=== PATIENT | male | born 1950 | race Caucasian/White ===

== ENCOUNTER 2019-05-06 05:33 | Inpatient (IN) ==
[2019-05-06] MEDS ORDERED: Sodium Chloride 0.9% 250 ML ONE (05:57)
[2019-05-06] MEDS ORDERED: Vancomycin Inj 1gm vial ONE ×2 (05:57→07:10)
[2019-05-06] MEDS ORDERED: Vancomycin-PHA to Dose IV PRN (06:00)
[2019-05-06] MEDS ORDERED: Lactated Ringers 1,000 ML PRIMARY IV ONE (06:00)
[2019-05-06] MEDS ORDERED: LIDOCAINE W/ SODIUM BICARB 0.5 ML SYR SUBD ONE (06:00)
[2019-05-06] MEDS ORDERED: ceFAZolin Inj 2gm (Premix) 2 GM/50 ML BAG IV ONE (06:00)
[2019-05-06] MEDS ORDERED: Nasal Sanitizer POPSWAB ampule 3 AMP (Nozin) PREOP DOSE ENOS SCH (06:00)
[2019-05-06 06:21] LABS: BILIRUBIN,URINE NEGATIVE (NEG); CLARITY,URINE CLEAR (CLEAR); COLOR,URINE YELLOW (Y); GLUCOSE, URINE (UA) NEGATIVE (NEG); OCCULT BLOOD,URINE NEGATIVE (NEG); PH,URINE 5.5 (5.0-8.5); PROTEIN,URINE NEGATIVE (NEG); UROBILINOGEN,URINE 0.2 EU/dL (0.2)
[2019-05-06 06:30] LABS: URINE SAMPLE TYPE CLEAN CATCH URINE
[2019-05-06] MEDS ORDERED: Gentamicin Inj 40 MG/ML VIAL ONE (07:10)
[2019-05-06] MEDS ORDERED: BACITRACIN 50,000 UNIT VIAL IRRIG ONE ×2 (07:10→08:30)
[2019-05-06] MEDS ORDERED: Sodium Chloride 0.9% vial 30 ML ONE (07:10)
[2019-05-06] MEDS ORDERED: BUPIVACAINE 0.25% W/ EPI - 10 ML VIAL ONE (07:10)
[2019-05-06] MEDS ORDERED: HYDROmorphone 2 MG/1 ML ONE ×2 (07:33→07:34)
[2019-05-06] MEDS ORDERED: ROCURONIUM 10 MG/1 ML - 5 ML VIAL IVP ONE (07:33)
[2019-05-06] MEDS ORDERED: LIDOCAINE HCL 2 % 10 ML JELLY URO-JECT TOPICAL ONE (07:45)
[2019-05-06] MEDS ORDERED: TRANEXAMIC ACID 1,000 MG / 10 ML VIAL ONE (08:23)
[2019-05-06] MEDS ORDERED: DEXAMETHASONE PF 10 MG/1 ML VIAL ONE (08:23)
[2019-05-06] MEDS ORDERED: Sodium Chloride 0.9% vial 10 ML ONE ×2 (08:30→12:01)
[2019-05-06] MEDS ORDERED: LIDOCAINE HCL 2 % 10 ML JELLY URO-JECT TOPICAL PRN (08:36)
[2019-05-06] MEDS ORDERED: ceFAZolin 1 GM VIAL ONE (11:28)
[2019-05-06] MEDS ORDERED: PROPOFOL 10 MG/1 ML (200 MG/20 ML) VIAL IV ONE (11:37)
[2019-05-06] MEDS ORDERED: BUPivacaine Liposome/PF (Exparel) Inj 20ml vial INFIL ONE (13:45)
[2019-05-06] MEDS ORDERED: Sodium Chloride 0.9% vial 20 ML ONE (13:45)
[2019-05-06] MEDS ORDERED: LIDOCAINE W/ SODIUM BICARB 0.5 ML SYR SUBD PRN (14:42)
[2019-05-06] MEDS ORDERED: HYDROmorphone 2 MG/1 ML IVP PRN (14:42)
[2019-05-06] MEDS ORDERED: Ondansetron ODT Tab 8 MG TAB PO PRN (14:42)
[2019-05-06] MEDS ORDERED: Acetaminophen 1000mg Inj 1,000 MG/100 ML VIAL IV ONE (14:42)
[2019-05-06] MEDS ORDERED: fentaNYL Inj 100 MCG/2 ML VIAL IVP PRN (14:42)
[2019-05-06] MEDS ORDERED: Prochlorperazine Edisylate Inj 10mg/2ml vial IVP PRN ×2 (14:42→16:13)
--- NOTE | 2019-05-06 14:42 | CRNA.PROGR ---
Anesthesia Recovery Phase I - Post Anesthesia Evaluation Patient's Condition on Arrival in Phase I: Stable Patient's Condition on Arrival in Phase II: Stable Pain Level: 2 (stable at pt handoff pacu)
--- NOTE | 2019-05-06 14:42 | CRNA.PROGR ---
Anesthesia Time - Procedure/Recovery Time Start Date: 05/06/19 End Date: 05/06/19 Anesthesia : Time In: :24 Anesthesia : Time Out: 14:39 Anesthesia : Total Time: 435 - Total Anesthesia Time Total Anesthesia Time (minutes): 435 - Other Weight: 100.698 kg Height: 6 ft 3 in Body Mass Index (BMI): 27.7 Physical Status: P2 (Stable at pt handoff pacu, and d/c to floor) Anesthesia Type: General Anesthesia : ET
--- NOTE | 2019-05-06 15:03 | GEN.OPNOTE ---
Operative Note Surgery Date: 05/06/19 Preoperative Diagnosis: 1. Shooting left calf pain with flexion of the left lower leg. 2. Multilevel lumbar degenerative disc disease. 3. Multilevel lumbar spondylosis. 4. Diffuse disc protrusions L2-3. L3-4 and L4-5 and L5-S1 more prominent left producing lateral recess stenosis at L3-4 and L4-5. 5. Left L4 and L5 neural foraminal stenosis. 6. S/P right L3-4 and right L4-5 MLD. Postoperative Diagnosis: 1. Shooting left calf pain with flexion of the left lower leg. 2. Multilevel lumbar degenerative disc disease. 3. Multilevel lumbar spondylosis. 4. Heavily scarred neural elements to surrounding spinal structures, L3-4 and L4-5. 5. Left L4-5 subligamentous herniated nucleus propulsis, partially caudally migrated under left L5 nerve root. 6. Loose rostral aspect of left L5 superior articulating facet process in the lateral recess. 7. L5-S1 central canal stenosis with bilateral lateral recess stenosis. 8. Left L3, L4, L5 neuroforaminal stenosis. 9. S/P right L3-4 and right L4-5 MLD. Procedure: 1.) Partial L3 laminectomy with medial facetectomies and foraminotomies bilaterally. (CPT code: 96259). 2.) Redo L4 laminectomy with medial facetectomies and foraminotomies bilaterally. (CPT code: 34396). 3.) Complete L5 laminectomy with medial facetectomies and foraminotomies bilaterally. (CPT code: 78029). 4.) Use of the operative microscope for microsurgical techniques for the left L4-5 microlumbar discectomy. (CPT code: 51942). 5.) Use of intra-operative fluoroscopy for localization of correct surgical levels and for comfirmation of final levels of decompression. 6.) Use of intra-operative neuromonitoring including EMG's and SSEP's. Surgeon: Curtis Bergman MD Manager Education: JOHANNE Tafoya Anesthesia Provider: Sourav Cowan MD Anesthesia Type: General Estimated Blood Loss (mL): 250 Fluids: See anesthesia record Pathology: None Indications: Mr. Gallagher is a 68 year old gentleman with left calf pain. Ms. Gallagher has a history of a L3-5 laminectomy and right L3-[address] Buckner on 04/20/2016. He did well following this surgery. but that same year he fell and twisted his left leg, and since this accident has had pain in his left knee and calf. He underwent a left knee arthroscopy with a menisectomy in August 2018, which did not relieve his calf pain. He was referred to Dr. Elias who diagnosed with with neuropathy. Mr. Gallagher continues to get sharp pain down his left calf when he attempts to bend his knee. He had a lumbar MRI scan that demonstrated multilevel lumbar degenerative disc disease and multilevel lumbar spondylosis. The study demonstrated left lateral recess stenosis and left neuroforaminal stenosis. He had failed to get relief with non-operative therapies, but did get brief relief of his symptoms with better ability to move his left lower extremity with left L4 and L5 selective nerve root blocks. We discussed the option of redo decompression at L3-4 and L4-5 with a L3-S1 lumbar laminectomy with medial facetectomies and foraminotomies for potential durable relief of his symptoms; however I did state to him the I could not give him any guarantee relief of his unusual symptoms with the procedure. He wished to proceed with the procedure and presents for his surgery today. Findings: 1.) Heavy scarring of the thecal sac and nerve roots to surrounding structures. 2.) Dense calcified plaque of scar on the dorsal aspect of the thecal sac. 3.) Left L4-5 herniated nucleus propulsis. 4.) Loose upper aspect of left superior L5 articulating facet in the lateral recess. 5.) Moderately severe to severe L5-S1 central canal and bilateral lateral recess stenosis. 6.) Left L3, L4, and L5 neuroforaminal stenosis. Complications: Small incidental durotomy with intact underlying arachnoid membrane with no CSF leak, covered with Duragen, sealed over the dura with Tisseal. Operative Summary: Mr. Gallagher was met in the preoperative area. His surgical history and physical in his surgical chart was reviewed. The procedure to be performed was confirmed with Mr. Gallagher and we were in agreement on the procedure to be performed and this matched what was written on his consent form. I answered any questions that he or his had before he was taken back to the operating room suite. Mr. Gallagher was brought back to the operating room suite and put under general anesthesia and intubated by the anesthesia staff. He had a Gray catheter placed in his bladder for the procedure. He had pneumatic compression hose placed on his lower legs bilaterally. Mr. Gallagher was carefully rolled over onto the Gurjit surgical table with his arms gently positioned upwards with her shoulders abducted less than 90. His arms were well-padded with foam padding on top of the padding of the surgical armboards. The region of his chest and axilla was checked bilaterally to make sure that there were no pressure points over the region of the brachial plexus bilaterally. His nipples were checked be below the chest pad of the Gurjit table no pressure points. All bony prominences were well padded. His Gray catheter was checked be free from kinks. His pneumatic compression hose was attached pneumatic compression device. The C-arm fluoroscopy was used to help determine the rostral and caudal extension needed to Mr. Gallagher's scar from his previous inicision for his lumbar laminectomies and discectomies. The intended skin incision was demarcated with a skin marker with crosshatches including Mr. Gallagher scar firmness previous surgery which was somewhat at an angle and not completely midline. It was felt better to open the previous incision with the rostral and caudal extension rather than to make new separate incision in the midline. Mr. Gallagher was given 2 g of Ancef IV and vancomycin (dosed per pharmacy) IV for perioperative antibiosis. He was given 10 mg of Decadron IV. A standard surgical timeout was performed identifying the correct patient, the correct procedure, and the correct equipment being available for the procedure. The intended skin incision was injected subcutaneously with quarter percent Marcaine with 1 in 200,000 epinephrine. 20 mL of local anesthetic was used. The intended skin incision was incised with a 10 blade scalpel with all dermal and superficial bleeding points coagulated with bipolar cautery. Dissection was continued down through the subcutaneous tissue and scar tissue from the patient's previous surgery down to the lumbar fascia. The lumbar fascia was incised along the borders of the spinous process believed to be the L3 spinous process and the dissection was continued laterally out over the L3 lamina. Dissecting further caudally the L4 spinous process was missing, removed at the time of the patient's previous surgery, but the L5 spinous process was identified and subperiosteal dissection was performed down the spinous process and out over the lamina. Lateral fluoroscopy was then performed confirming the levels of exposure. The dissection was continued over the medial aspects of the L3-4, L4-5, and L5-S1 facet joints. The caudal aspect of the L3 spinous process was removed with a large Leksell rongeur. A partial laminectomy of L3 with medial facetectomies and foraminotomies bilaterally was performed using the high-speed Zinc software drill with a matchstick bit as well as with Kerrison punches. The scar tissue from the patient's previous surgery filled the interlaminar space low the L3 lamina but once the partial laminectomy was performed, yellow lig ament was identified, and then up angled curette was used to dissect the insertion of the yellow ligament from underneath the remaining aspect of the L3 lamina. The plane between the yellow ligament and the dura in this rostral aspect of the surgical dissection was established and the yellow ligament was removed in the canal and lateral recesses bilaterally. There was bilateral lateral recess stenosis encountered bank guard in degree and the right. The thickened ligament and bony arthropathy producing this lateral recess stenosis was removed with a high-speed drill with a matchstick bit as well as with Kerrison punches. Proceeding caudally, the scar tissue from the patient's previous surgery was encountered. The left aspect of the L4 lamina remained, left from the previous surgery. The thecal sac was heavily scarred to the remaining L4 lamina and to the lateral bony guerra of the canal. The remaining aspect of the L4 lamina on the left was completely removed with a high-speed drill with a matchstick bit. Medial facetectomies were performed bilaterally, drilling the the medial aspect of the lateral bony guerra just adjacent to the thecal sac and scar tissue connecting the thecal sac to this bone which helped release the tethering of the thecal sac to the bony guerra. Careful dissection with a medium straight and medium up angled curette helped to further detail her the thecal sac from its dense scar tissue attachments to the bony aspects of the canal. Dissecting in the lateral recess, left lateral recess stenosis was encountered at L3-4 and L4-5 from bony arthropathy and ligamentous hypertrophy. During this dissection in the left lateral recess, the rostral aspect of the superior L5 articulating process with found to be loose, which was dissected out with an up angled curette and removed. With this the lateral aspect of the left L4-5 disc space was identified. After carefully detethering of the thecal sac from the disc space, a prominent subligamentous herniated nucleus pulposus extending caudally beneath the transversing L5 nerve root was encountered. The thecal sac was carefully retracted with a sucker tip and an annulotomy was performed in the L4-5 disc space on the left and the subligamentous disc herniation was removed including the caudally migrated disc fragment in a pseudocapsule behind the posterior superior aspect of the L5 vertebral body in the left lateral recess. This completely decompressed the lateral recess and the transversing L5 nerve root. With the thecal sac now essentially completely de-tethered from scar tissue attachments to the bony aspects of the canal, there remained a thick, dense, heavily calcified plaque of scar tissue attached to the dorsal aspect of the dura. This was pared down to a thin layer of scar over the dura with a fine tooth forceps and a 15 blade scalpel. A complete laminectomy of L5 with medial facetectomies was then performed, removing the L5 spinous process with a large Leksell rongeur, and thinning of the L5 lamina bilaterally with the same instrument. The remainder of the laminectomy, medial facetectomies, and foramintomies were performed with the high-speed drill with a matchstick bit as well as with Kerrison punches. When removing the last piece of bone in the right lateral recess, a small tethering of scar remaining to the thecal sac toward small durotomy in the dura, but with the arachnoid layer underneath intact, and no CSF leak. Surgical findings at the L5-S1 level included lumbar central canal stenosis and bilateral lateral recess stenosis, more than expected on preoperative imaging. Excellent decompression of the spinal canal from the level of the L3 pedicle to the level of the S1 pedicle bilaterally was then assured both by visual inspection as well as by palpation with the [place]land instrument in the canal and the lateral recesses and passing the instrument above and below the L3-L4 and L5 nerve roots as they transversed out there neuroforamen and passing the same instrument above and below the S1 nerve roots as they passed medial to the pedicles. The surgical site was pulse lavaged with 3 L of bacitracin/vancomycin/and Meissen solution. Meticulous hemostasis was performed with bipolar cautery and FloSeal hemostatic agent. Surgical site was irrigated with bacitracin irrigation. FloSeal hemostatic agent was placed into the lateral recesses of the d ecompressed levels bilaterally. A piece of 1 cm x 3 cm DuraGen was then placed over the durotomy site which was then sealed over with Tisseel tissue sealant. Once the Tisseel set up a piece of compressed Gelfoam was placed across the exposed canal. FloSeal hemostatic agent was then placed around the edges of the Gelfoam and also the Gelfoam was covered with the FloSeal hemostatic agent. A surgical site drain was considered however excellent hemostasis had been obtained, the surgical site was quite dry, it was felt best not to place a drain with the durotomy even though there was no CSF leak. It was felt not to be necessary. The closure portion of the procedure was begun. The paraspinous musculature was closed with #1 Vicryl suture in an interrupted fashion. The lumbar fascia was closed tightly with #1 Vicryl suture in an interrupted fashion. The surgical site was then pulse lavaged with a small amount of the remaining irrigant. The deep subcutaneous tissue was then reapproximated with 2-0 Vicryl suture in an interrupted fashion. 20 mL of Experel mixed with 20 mL of quarter percent Marcaine was then injected all around the incision in the subcutaneous tissue layer. The dermis and superficial subcutaneous tissue was then reapproximated with 3-0 Vicryl suture in an inverted interrupted fashion. The Ioban drape was pulled back from the skin edges and the final layer of closure was performed surgical stainless steel jennifer. The incision was cleansed with bacitracin soaked sponge and dried with a sterile dry sponge. The incision was dressed with a Silverlon dressing. All surgical drapes removed from Mr. Gallagher. He was carefully rolled over onto the PACU stretcher. He was awoken and a the anesthesia staff. He was taken to the recovery room in stable condition. All surgical counts were reported as correct by the scrub and circulating personnel. A physician's licensed occupational therapy assistant, Mrs. Ana Hernandez PA-C, assisted with the procedure including the exposure and closure portions of the procedure. She also provided irrigation and suctioning throughout the procedure.
[2019-05-06] MEDS ORDERED: oxyCODONE/APAP 7.5/325 Tab 1 TAB TAB PO PRN (16:13)
[2019-05-06] MEDS ORDERED: MORPHINE SULFATE 2 MG/1 ML IVP PRN (16:13)
[2019-05-06] MEDS ORDERED: DIAZEPAM 10 MG TABLET PO PRN (16:13)
[2019-05-06] MEDS ORDERED: PROMETHAZINE 25 MG/1 ML VIAL IM PRN (16:13)
[2019-05-06] MEDS ORDERED: DIAZEPAM 10 MG/2 ML (5 MG/1 ML) CARPUJECT IVP PRN (16:13)
[2019-05-06] MEDS ORDERED: oxyCODONE/APAP 10/325 Tab 1 EACH TAB PO PRN (16:13)
[2019-05-06] MEDS ORDERED: Fleet Enema 133ml RECTAL PRN (16:13)
[2019-05-06] MEDS ORDERED: BISACODYL 5 MG TABLET PO PRN (16:13)
[2019-05-06] MEDS ORDERED: oxyCODONE-ACETAMINOPHEN 5-325 TAB PO PRN (16:13)
[2019-05-06] MEDS ORDERED: MAGNESIUM 400 MG/5 ML - 30 ML (MILK OF MAGNESIA) PO PRN (16:13)
[2019-05-06] MEDS ORDERED: Metoclopramide Inj 10 MG/2 ML VIAL IVP PRN (16:13)
[2019-05-06] MEDS ORDERED: MAGNESIUM CITRATE 296 ML SOLUTION PO PRN (16:13)
[2019-05-06] MEDS ORDERED: DOCUSATE 100 MG CAPSULE PO PRN (16:13)
[2019-05-06] MEDS ORDERED: HYDROcodone-APAP 10 MG-325 MG TABLET PO PRN (16:13)
[2019-05-06] MEDS ORDERED: Vancomycin-PHA to Dose IV SCH (16:13)
[2019-05-06] MEDS ORDERED: Ondansetron ODT Tab 4 MG TAB PO PRN (16:13)
[2019-05-06] MEDS ORDERED: ONDANSETRON 4 MG/2 ML VIAL IVP PRN (16:13)
--- NOTE | 2019-05-06 16:45 | NEURO.PROG ---
Subjective Post Op Day: 0 Pain Management: PO Gray Catheter: Yes Diet: Regular Ambulating: No Additional Details: Awake and alert in the PACU. Reports minor incisional pain. States left lower leg seems to feel better. Good knee flexion, dorsiflexion, plantarflexion bilaterally. To med/surg floor when parameters met. Continue bedrest with HOB up to 20 degrees until Saturday to let small durotomy start to heal. Continue post-operative antibiotics. Continue post-operative pain control. Advance diet. LE Dopplers Saturday. Start to get up, OOB, and mobilize Saturday. Objective : Data - Vital Signs Vital Signs and I&O: Vital Signs - Last Taken Temperature 97.5 F 05/06/19 16:21 Pulse Rate 70 05/06/19 16:21 Respiratory Rate 14 05/06/19 16:21 Blood Pressure 128/87 05/06/19 16:21 Pulse Ox 95 05/06/19 16:21 Intake and Output (24hr x 4 totals) 05/04/19 05/05/19 05/06/19 05/07/19 05:59 05:59 05:59 05:59 Intake Total 2600 / 2600 Output Total 800 / 800 Balance 1800 / 1800
[2019-05-06] MEDS: ceFAZolin Inj 1 GM in Sodium Chloride 0.9% 100 ML IV SCH (17:18)
--- NOTE | 2019-05-06 19:17 | CONSULT ---
Consult Note - Consult Consult Date: 05/06/19 Reason for Consult: PostOp Consulation : Neuro Requesting Physician: Dr. Bergman Primary Care Provider: NONE NONE - History of Present Illness History of Present Illness: This is a 68 years old male with medical history significant for history of hyperlipidemia, multilevel lumbar degenerative disc disease who came into the hospital to have L3 S1 lumbar laminectomy and was done by Dr. Bergman today the patient was seen postoperatively. Patient is in bedrest until Saturday because of dural tear. He was having some pain in his back from surgery but otherwise he is denying other symptoms. He said his main complaint prior to that was the shooting pain in the left leg after he bends his left knee. Currently he is denying other symptoms like nausea, chest pain, shortness of breath. Past Medical History Medical History: 1. History of hyperlipidemia Surgical History: 1. History of L5 discectomy in 2015. 2. Left knee surgery August 2018 Family History: Reviewed an Not Pertinent Past Social History: Does not smoke, occasionally drink on no drugs. Tobacco Use: Never Smoker In the Past 12 Months, Have Used or Abuse Any of the Following Substance: None Review of Systems - Review of Systems All Systems: Reviewed & No Additional Complaints Except as Stated Medication / Allergies Home Medications: Home Medications Medication Instructions Recorded Confirmed rosuvastatin 20 mg tablet 20 mg PO QDAY 12/29/18 05/06/19 Allergies/Adverse Reactions: Allergies Allergy/AdvReac Type Severity Reaction Status Date / Time No Known Allergies Allergy Verified 05/07/19 06:48 Exam - Vitals Vital Signs: Vital Signs Temperature 97.7 F Temperature Source Oral Pulse Rate [Pulse Oximeter] 68 Pulse Rate 68 Respiratory Rate 16 Blood Pressure [Right Arm] 158/60 Blood Pressure 134/75 Pulse Ox 96 Oxygen Flow Rate 1.5 Oxygen Delivery Method Nasal Cannula Height 6 ft 3 in Weight 222 lb - General General Appearance: No Acute Distress, Cooperative - Head Head Exam: Normal Inspection - Eye Eye Exam: POSITIVE: Normal Appearance - ENT ENT Exam: POSITIVE: Normal Exam - Neck Neck Exam: Normal Inspection - Respiratory Respiratory Exam: POSITIVE: Clear to Auscultation - Bilaterally - Cardiovascular Cardiovascular Exam: POSITIVE: RRR - GI/Abdominal GI/Abdominal Exam: POSITIVE: Normal Bowel Sounds, Non Tender, Non Distended, Soft - Rectal Rectal Exam: POSITIVE: Deferred - External Exam: POSITIVE: Deferred - Extremities Extremities Exam: POSITIVE: Normal Inspection - Neurological Neurological Exam: POSITIVE: Alert, Oriented x 3, CN II-XII Intact, No Facial Droop, Speech Intact / Clear Results - Labs CBC and BMP: 05/07/19 04:20 05/07/19 04:20 Assessment and Plan - Patient Problems (1) Status post laminectomy Current Visit: No Status: Acute Comment: Management per Dr. Bergman. He already wrote for pain medications and anti-emetics. For DVT prophylaxis he is on SCDs. Code(s): Z98.890 - Other specified postprocedural states (2) High cholesterol Current Visit: No Status: Chronic Comment: Continue previous medication Code(s): E78.00 - Pure hypercholesterolemia, unspecified
[2019-05-06] MEDS: Rosuvastatin Tab 20 MG TAB PO SCH (20:30)
[2019-05-06] MEDS ORDERED: VANCOMYCIN HCL IV ONE (21:00)
[2019-05-06] MEDS ORDERED: SODIUM CHLORIDE 0.9% IV ONE (21:00)
[2019-05-07] MEDS: ceFAZolin Inj 1 GM in Sodium Chloride 0.9% 100 ML IV SCH (00:54)
[2019-05-07] MEDS: HYDROcodone-APAP 5 MG -325 MG TABLET PO PRN ×3 (04:18→23:49)
[2019-05-07 05:23] LABS: BASOPHILS # (AUTO) 0 10*3/UL; BASOPHILS % (AUTO) 0 % (0-1); EOSINOPHILS # (AUTO) 0 10*3/UL; EOSINOPHILS % (AUTO) 0 % (0-8); Hematocrit [HCT] 42.1 % (42.0-52.0); LYMPHOCYTES # (AUTO) 0.82 10*3/uL; MEAN CORPUSCULAR HGB CONC 33.3 g/dL (33-37); MEAN CORPUSCULAR VOLUME 92.7 FL (80-90); MEAN PLATELET VOLUME 12.2 FL (7.4-12.2); MONOCYTES # (AUTO) 1.19 10*3/UL (0.3-0.8); MONOCYTES % (AUTO) 7.6 % (5-15); NEUTROPHILS # (AUTO) 13.56 10*3/UL; NEUTROPHILS % (AUTO) 86.9 % (50-80); RED BLOOD COUNT 4.54 10^6/uL (4.70-6.10)
[2019-05-07 05:31] LABS: PLATELET MORPHOLOGY COMMENT NORMAL MORPHOLOGY (NORM); RBC MORPHOLOGY COMMENT NORMAL MORPHOLOGY (NORM); WBC MORPHOLOGY COMMENT NORMAL MORPHOLOGY (NORM)
[2019-05-07 05:39] LABS: BLOOD UREA NITROGEN 21 mg/dL (7-22)
[2019-05-07] MEDS: PANTOPRAZOLE 40 MG TABLET PO SCH (06:49)
--- NOTE | 2019-05-07 07:19 | NEURO.PROG ---
Subjective Post Op Day: 1 Pain Management: PO Gray Catheter: Yes Flatus: Yes Diet: Regular Ambulating: No Additional Details: Mr Gallagher is awake and alert, moving all extremities. He states that the numbness he has had in his feet is not present and that he is reasonably comfortable at bedrest. He has full dorsi/plantar and knee flexsion. He denies arm or shoulder discomfort from prone positioning in OR. His incision is dry and intact. Vena flows operational on bilateral lower extremities Plan: Continue bedrest today, then LE US in am for venous evaluation prior to ambulation Objective : Data - Labs CBC and BMP: 05/07/19 04:20 05/07/19 04:20 - Vital Signs Vital Signs and I&O: Vital Signs - Last Taken Temperature 97.5 F 05/07/19 06:33 Pulse Rate 67 05/07/19 06:33 Respiratory Rate 17 05/07/19 06:33 Blood Pressure 140/67 05/07/19 06:33 Pulse Ox 96 05/07/19 06:33 Intake and Output (24hr x 4 totals) 05/05/19 05/06/19 05/07/19 05/08/19 05:59 05:59 05:59 05:59 Intake Total 3400 / 3400 Output Total 2500 / 2500 Balance 900 / 900
--- NOTE | 2019-05-07 15:06 | PT PM DAY ---
Diagnosis : Status Post Laminectomy PM - Physical Therapy O: The patient was issued a [employer] back brace and instructed in its proper use and care. P: No further therapy is indicated at this time. MTDD
--- NOTE | 2019-05-07 16:05 | PDOC(PROG) ---
Date of Service: 05/07/19 Time of Service: 15:00 Interval History: Subjective Patient was laying in bed. Some pain in his back but no tingling in his feet which he had before. No other symptoms. Objective : Data - Labs CBC and BMP: 05/07/19 04:20 05/07/19 04:20 Objective : Exam - General General Appearance: No Acute Distress, Cooperative - Head Head Exam: Normal Inspection - Eye Eye Exam: Normal Appearance - ENT ENT Exam: Normal Exam - Neck Neck Exam: Normal Inspection - Respiratory Respiratory Exam: Clear to Auscultation - Bilaterally - Cardiovascular Cardiovascular Exam: RRR - GI/Abdominal GI/Abdominal Exam: Normal Bowel Sounds, Non Tender, Non Distended, Soft, No Organomegaly - Rectal Rectal Exam: Deferred - External Exam: Deferred - Extremities Extremities Exam: Normal Inspection - Back Back Exam: Normal Inspection - Neurological Neurological Exam: Alert, Oriented x 3, CN II-XII Intact, No Facial Droop, Speech Intact / Clear - Psychiatric Psychiatric Exam: Normal Affect Assessment and Plan - Patient Problems (1) Status post laminectomy Current Visit: No Status: Acute Comment: He is on bedrest until tomorrow. He'll have an ultrasound of the legs tomorrow before ambulation. Code(s): Z98.890 - Other specified postprocedural states (2) High cholesterol Current Visit: No Status: Chronic Comment: Same med. Code(s): E78.00 - Pure hypercholesterolemia, unspecified
[2019-05-07] MEDS: Rosuvastatin Tab 20 MG TAB PO SCH (22:03)
[2019-05-08] MEDS: HYDROcodone-APAP 7.5 MG-325 MG TABLET PO PRN ×5 (04:45→21:59)
[2019-05-08 05:10] LABS: BASOPHILS # (AUTO) 0.02 10*3/UL; BASOPHILS % (AUTO) 0.2 % (0-1); EOSINOPHILS # (AUTO) 0.03 10*3/UL; EOSINOPHILS % (AUTO) 0.3 % (0-8); Hematocrit [HCT] 42.1 % (42.0-52.0); LYMPHOCYTES # (AUTO) 1.38 10*3/uL; MEAN CORPUSCULAR HGB CONC 33.3 g/dL (33-37); MEAN PLATELET VOLUME 12.2 FL (7.4-12.2); MONOCYTES # (AUTO) 1.43 10*3/UL (0.3-0.8); MONOCYTES % (AUTO) 13.4 % (5-15); NEUTROPHILS # (AUTO) 7.76 10*3/UL; NEUTROPHILS % (AUTO) 72.9 % (50-80); RED BLOOD COUNT 4.48 10^6/uL (4.70-6.10)
[2019-05-08 05:26] LABS: PLATELET MORPHOLOGY COMMENT NORMAL MORPHOLOGY (NORM); RBC MORPHOLOGY COMMENT NORMAL MORPHOLOGY (NORM); WBC MORPHOLOGY COMMENT NORMAL MORPHOLOGY (NORM)
[2019-05-08] MEDS: PANTOPRAZOLE 40 MG TABLET PO SCH (07:03)
--- NOTE | 2019-05-08 07:34 | NEURO.PROG ---
Subjective Post Op Day: 2 Pain Management: PO Gray Catheter: Yes Flatus: Yes Diet: Regular Ambulating: No Additional Details: Awake and alert. Lying comfortably in bed. Denies headache. Minimal surgical/incisional pain, well controlled with [place]. Denies leg pain, numbness, or tingling. Good knee flexion/dorsiflexion/plantar flexion bilaterally. LE Ultrasound pending. If negative will start to ambulate. Maybe home later today if still doing well and ambulating well mid to late afternoon. Objective : Data - Labs CBC and BMP: 05/08/19 03:57 05/07/19 04:20 - Vital Signs Vital Signs and I&O: Vital Signs - Last Taken Temperature 97.7 F 05/08/19 06:34 Pulse Rate 72 05/08/19 06:34 Respiratory Rate 16 05/08/19 06:34 Blood Pressure 138/67 05/08/19 06:34 Pulse Ox 94 05/08/19 06:34 Intake and Output (24hr x 4 totals) 05/06/19 05/07/19 05/08/19 05/09/19 05:59 05:59 05:59 05:59 Intake Total 3400 / 3400 1570 / 1570 Output Total 2500 / 2500 3350 / 3350 Balance 900 / 900 -1780 / -1780
[2019-05-08] MEDS ORDERED: Sodium Chloride 0.9% 1,000 ML PRIMARY IV ONE ×2 (16:45→16:46)
--- NOTE | 2019-05-08 16:58 | DI ---
[facility] 7:00 AM: Clinical History: Postoperative evaluation. Previous Exam: None at this facility. Findings: Multiple grayscale and color Doppler sonographic images are obtained Through the deep veins of the left lower extremity, and demonstrate complete coaptation upon graded c ompression. There is normal respiratory variation and augmentation Impression: No evidence of deep venous thrombosis.
[2019-05-08] MEDS ORDERED: CYCLOBENZAPRINE 10 MG TABLET PO PRN (17:45)
[2019-05-08] MEDS: Rosuvastatin Tab 20 MG TAB PO SCH ×2 (20:32→20:34)
--- NOTE | 2019-05-08 20:50 | PDOC(PROG) ---
Date of Service: 05/08/19 Time of Service: 16:00 Interval History: patient seen, evaluated earlier today. after visit, patient was up with therapy and was light headed, dizzy. had nausea. resolved. back pain controlled no NIETO, no chest pain Objective : Data - Labs CBC and BMP: 05/08/19 03:57 05/07/19 04:20 Objective : Exam - General General Appearance: No Acute Distress, Cooperative Additional General Exam Details: Selected Entries 05/08/19 16:37 05/08/19 20:11 Temperature 98.6 F Pulse Rate [Pulse Oximeter] 80 Respiratory Rate 16 16 Blood Pressure [Right Arm] 97/77 142/72 Blood Pressure Mean [Right Arm] 83 95 Pulse Ox 95 96 Oxygen Flow Rate 1 - Head Head Exam: Normal Inspection, Normocephalic, Atraumatic - Eye Eye Exam: No Scleral Icterus - ENT ENT Exam: Mucous Membranes Moist - Neck Neck Exam: JVP is not Raised - Respiratory Respiratory Exam: Clear to Auscultation - Bilaterally, Breathing Non Labored - Cardiovascular Cardiovascular Exam: RRR, No Murmur, No Clicks, No Gallops, No Rubs, No JVD - GI/Abdominal GI/Abdominal Exam: Normal Bowel Sounds, Non Tender, Non Distended, Soft - Extremities Extremities Exam: No Clubbing Present, No Edema Present, No Cyanosis Present - Neurological Neurological Exam: Alert, Oriented x 3, No Facial Droop, Speech Intact / Clear, Moves All Extremities Equally Assessment and Plan - Patient Problems (1) Hypotension Current Visit: Yes Status: Acute Code(s): I95.9 - Hypotension, unspecified Qualifiers: Hypotension type: other hypotension type Qualified Code(s): I95.89 - Other hypotension (2) High cholesterol Current Visit: Yes Status: Chronic Code(s): E78.00 - Pure hypercholesterolemia, unspecified (3) Status post laminectomy Current Visit: Yes Status: Acute Code(s): Z98.890 - Other specified postprocedural states - Assessment / Plan Additional Assessment/Plan Details: fluids today, PO and bolus of 1 L NS. blood pressure improved continue PT and OT US negative for DVT continue cholesterol meds with hypotension, keep overnight and hopefully SBP's better, then hopefully home tomorrow
[2019-05-09] MEDS: PANTOPRAZOLE 40 MG TABLET PO SCH (06:54)
--- NOTE | 2019-05-09 07:36 | NEURO.PROG ---
Subjective Post Op Day: 3 Pain Management: PO Kirkpatrick Catheter: Yes Flatus: Yes Diet: Regular Ambulating: Yes Additional Details: Mr Gallagher is awake and alert. He has good bilateral dorsi/plantar flexion and knee flexion. Pre op left knee pain is still resolved, but states his knee arthritis pain, especially in the right knee has been bothering him. We discussed his use of naproxen at home, which he can continue since he did not have a fusion. His vital signs are stable without hypotension this morning. He is ready to get his kirkpatrick out, try to have a bowel movement this morning and walk again with PT in preparation for discharging home later today. His dressing is dry and intact. Plan: Continue to mobilize Discharge home per Dr Rao Objective : Data - Labs CBC and BMP: 05/08/19 03:57 05/07/19 04:20 - Vital Signs Vital Signs and I&O: Vital Signs - Last Taken Temperature 98 F 05/09/19 07:07 Pulse Rate 74 05/09/19 07:07 Respiratory Rate 12 05/09/19 07:07 Blood Pressure 140/67 05/09/19 07:07 Pulse Ox 94 05/09/19 07:07 Intake and Output (24hr x 4 totals) 05/07/19 05/08/19 05/09/19 05/10/19 05:59 05:59 05:59 05:59 Intake Total 3400 / 3400 1570 / 1570 1590 / 1590 Output Total 2500 / 2500 3350 / 3350 2725 / 2725 Balance 900 / 900 -1780 / -1780 -1135 / -1135
[2019-05-09] MEDS: HYDROcodone-APAP 7.5 MG-325 MG TABLET PO PRN (09:14)
--- NOTE | 2019-05-09 11:28 | DCSUMMARY ---
Hospitalization Summary Admit Date: 05/06/2019 Discharge Date: 05/09/19 Primary Diagnosis:: status post back surgery (laminectomy, micro-discectomy) Hospital Course: This very pleasant 68-year-old male who presented for back surgery with Dr. Bergman on 05/06/2019. See his surgical notes regarding procedures performed. It was noticed at the time surgery the patient had a dural tear. He was laid flat for upwards of 48 hours, and actually recovered fine after that. He did not have any headaches, fevers, chills, nausea or vomiting except for the first day that he got up after his lying flat for his dural tear. The dural tear was repaired at the time of surgery. He had some slight nausea, and hypotension getting up, but after a liter of normal saline, ambulation, although symptoms resolved and hypotension resolved entirely. He does not have any other symptoms today. He states that his soreness and stiffness and shooting Pain are gone. He states that numbness and tingling in his feet bilaterally seem to be improved as well. In terms of his hypercholesterolemia he did not have any problems during the hospital stay. Today, no chest pain, shortness breath, nausea or vomiting. Pain is controlled from surgery. Patient would like to go home. Assessment and Plan: 1. As per discharge assessments noted 2. Disposition: Patient is discharged home. 3. Condition on discharge, stable and improved. 4. Diet: regular diet 5. Activities: resume activities per neurosurgery instructions 6. Follow-Up: 1. Dr. Bergman [address] Acosta in one week 7. Medications at the Time of Discharge: Home Medications Medication Instructions Recorded Confirmed rosuvastatin 20 mg tablet 20 mg PO QDAY 12/29/18 05/06/19 Cyclobenzaprine HCl [Flexeril] 10 mg PO TID PRN #30 tab 05/08/19 HYDROcodone/APAP 5/325 Tab [[place] 1 - 2 tab PO Q4-6H PRN #80 tab 05/08/19 5/325 Tab] 8. Time, care, counseling and coordination of care for this discharge is less than 30 minutes. Exam - Vitals Vital Signs: Vital Signs Temperature 98 F Temperature Source Temporal Artery Scan Pulse Rate [Pulse Oximeter] 74 Pulse Rate 68 Respiratory Rate 12 Blood Pressure [Right Arm] 140/67 Blood Pressure 134/75 Pulse Ox 94 Oxygen Flow Rate 1 Oxygen Delivery Method Room Air Height 6 ft 3 in Weight 222 lb 3.2 oz - General General Appearance: No Acute Distress, Cooperative - Eye Eye Exam: POSITIVE: No Scleral Icterus - ENT ENT Exam: POSITIVE: Mucous Membranes Moist - Neck Neck Exam: JVP is not Raised - Respiratory Respiratory Exam: POSITIVE: Clear to Auscultation - Bilaterally, Breathing Non Labored - Cardiovascular Cardiovascular Exam: POSITIVE: RRR, No Murmur, No Clicks, No Gallops, No Rubs, No JVD - GI/Abdominal GI/Abdominal Exam: POSITIVE: Normal Bowel Sounds, Non Tender, Non Distended, Soft - Extremities Extremities Exam: POSITIVE: No Clubbing Present, No Edema Present, No Cyanosis Present - Back Additional Back Exam Details: Silverlon dressing is in place. Dressing is clean, dry, intact - Neurological Neurological Exam: POSITIVE: Alert, Oriented x 3, No Facial Droop, Speech Intact / Clear, Moves All Extremities Equally - Psychiatric Psychiatric Exam: POSITIVE: Normal Affect, Normal Mood Data Peritnent Studies: 05/06/19 05/07/19 05/08/19 06:00 04:20 03:57 WBC 10.64 Hgb 14.0 Hct 42.1 Plt Count 169 Sodium 141 Potassium 4.6 Chloride 109 Carbon Dioxide 24 Anion Gap 8 BUN 21 Creatinine 1.0 Estimated GFR > 60 Glucose 120 H Calcium 8.8 Ur Culture Indicated? Culture not set Procedures: [address] [facility] [place] [address] PH: DD: [phone] FAX: [phone] ~DIAGNOSTIC IMAGING REPORT~ Patient: Dany Gallagher : 1950 Sex: M Age: 68 Exam Name: MAIDA Mcdowell/[facility] [employer] Exam Date: 05/08/19 Report # : [id number] CPT Code: 13988 EMR/MR #: [id number] Ordering: Francie Hernandez Admiting: Dr. Curtis Bergman MD. Primary: NONE,NONE Attending: Dr. Curtis Bergman MD. Signed MAIDA Mcdowell/[facility] [employer],05/08/2019 7:00 AM: Clinical History: Postoperative evaluation. Previous Exam: None at this facility. Findings: Multiple grayscale and color Doppler sonographic images are obtained Through the deep veins of the left lower extremity, and demonstrate complete coaptation upon graded compression. There is normal respiratory variation and augmentation Impression: No evidence of deep venous thrombosis. Dictated By: 05/08/19 1652 JIM HOLBROOK MD. Signed By: 05/08/19 165Vivek HOLBROOK MD. Patient Problems - Patient Problem List (1) Status post laminectomy Current Visit: Yes Status: Acute Code(s): Z98.890 - Other specified postprocedural states Category: Surgical (2) S/P lumbar microdiscectomy Current Visit: Yes Status: Acute Code(s): Z98.890 - Other specified postprocedural states Category: Surgical (3) Hypotension Current Visit: Yes Status: Resolved Code(s): I95.9 - Hypotension, unspecified Qualifiers: Hypotension type: other hypotension type Qualified Code(s): I95.89 - Other hypotension Category: Medical (4) High cholesterol Current Visit: Yes Status: Chronic Code(s): E78.00 - Pure hypercholesterolemia, unspecified Category: Medical
[2019-05-09 13:09] VITALS: BP 125/72; RESP 16; TEMP 97.8; O2SAT 95
--- NOTE | 2019-05-11 10:48 | OTI REPORT ---
Thank you for the referral of Dany Gallagher. He was seen on 05/08/19 for an occupational therapy inpatient evaluation status post laminectomy. SUBJECTIVE: The patient is a 68-year-old male who is being seen secondary to having a lumbar laminectomy. PAST MEDICAL HISTORY: Past medical history can be found in the patient's medical record. OBJECTIVE FINDINGS: Bed mobility: The patient was able to log roll from supine with min assist. He then required min assist to transfer from side lying to sitting. While sitting the patient was educated and instructed in his back precautions. Transfers: The patient was able to transfer from sit to stand with increased time and min assist. Activities of daily living: The patient was given a machine stamper, sock aide, bath sponge, and shoe horn in order to complete ADLs and functional activities independently. The patient was able to use adaptive devices with verbal cues. His was present and learned the equipment as well. He stated he already had a higher toilet as well as a shower chair at home. ASSESSMENT: The patient was very nauseous. He required a lot of increased time in order to transfer from sit to stand, but was able to comprehend adaptive devices. The patient's was present as well and learned how to use adaptive devices. Short-Term Goals: To be met by discharge from inpatient: Patient will be able to complete log rolls independently and safely. Long-Term Goals: To be met following discharge from inpatient: Patient will return home demonstrating modified independence with dressing lower extremities with use of adaptive devices. TREATMENT PLAN: Patient will be seen for initial evaluation only. The patient is not safe to go home as of tonight, but hopefully tomorrow he will be feeling better. INITIAL TREATMENT: Treatment today consisted of the initial evaluation activities only. THANIA
--- NOTE | 2019-05-11 15:13 | PTI REPORT ---
Thank you for the referral of Dany Gallagher. He was seen on 05/08/19 for an inpatient evaluation status post laminectomy. SUBJECTIVE: The patient is a 68-year-old male who underwent a lumbar laminectomy on 05/06/2019. The patient was on hold for physical therapy due to a dural bubble and was unable to get up until this afternoon. The patient states that he is really looking forward to getting up and moving. Him and his are concerned about going home this afternoon as the patient has not been up for two days. The patient is reporting minimal pain at this time, but also states that he hasn't been up yet, so he is a little nervous to see how that goes. The patient and his live in [place]. They state that they have one step and a ramp up the back of their house in order to get in and out. The patient's states that the patient will be staying on the first level of the home for the first few weeks and will not need to be going up and down stairs regularly. The patient states that he was not using an assistive device most of the time, but would use a single point cane with longer periods of ambulation. The patient states that he was having left lower extremity weakness and pain which was his main reason for using the cane, but denies any recent falls. PAST MEDICAL HISTORY: Past medical history can be found in the patient's medical record. OBJECTIVE FINDINGS: General observations: The patient was alert and oriented to setting upon PT arrival. The patient did have a Gray catheter still in place and was on one liter of oxygen. The patient was first instructed on his lumbar precautions to include no bending/lifting/twisting. Bed mobility: The patient was educated on how to properly perform a log roll to sit up out of bed onto the right side. The patient required max verbal cueing and minimal tactile cueing but was able to perform the log roll fairly well. Once in a seated position, the patient stated that he was a little dizzy and nauseous. He did sit in that position for a few minutes. We did take off the patient's oxygen during our transfers. The patient's oxygen saturation was at 95% so we left it off at that time. Transfers: The patient was educated on how to perform a sit to stand transfer and was able to do so with contact guard assist x2. Ambulation: Once standing, the patient required max assist to don his back brace. Once that was in the proper place, he ambulated with a front wheeled walker. The patient was very nauseous with standing activity and stated that he felt like he needed to vomit. The patient was pretty pale as well. The patient ambulated approximately 10 feet over to the chair with the walker and the patient transferred into the chair. His oxygen saturation at that time was at 90% and his blood pressure was within normal range. The patient's oxygen was placed back on at one liter. The patient's back brace was taken off and the gait belt was taken off as well. ASSESSMENT: The patient has good rehab potential. At this time the patient is unable to ambulate much further than 10 feet and he is not safe to return home tonight. Problem List: Patient is status post lumbar laminectomy Patient is having difficulty with functional activity and ambulation Physical Therapy Goals: To be met by discharge from inpatient: Patient will be able to transfer from bed to stand, also demonstrating a log roll technique to get from supine to sitting and sitting to supine positions independently. Patient will be able to don and doff his back brace independently. Patient will be able to ambulate at least 150 feet with least restrictive assistive device safely and independently. Patient will be able to ambulate up and down at least five stairs safely and independently with least restrictive assistive device. TREATMENT PLAN: Patient will be seen B.I.D during the week and one time per day over the weekend as an inpatient to address the above goals and objectives. INITIAL TREATMENT: Treatment today consisted of the initial evaluation. Following treatment the patient was left in chair with chair alarm set and call light within reach. After sitting for a few minutes the patient stated that he was feeling better. The therapist did educate the patient on calling nursing staff whenever he needs to get up and that while he is awake to try walking with nursing staff at least once an hour in order to start getting him used to being upright, especially since he is getting so nauseous at this time. The therapist did relay this message to the patient's nurse Vicky as well. THANIA
== END 2019-05-09 15:43 | disposition home or self-care (01) | DRG 520 ==
LOC: MED/SURG 05:33 → EDSTATUS 07:30 → MED/SURG 15:24
PROVIDERS: ADMIT Neurological Surgery; ATTEND Neurological Surgery